=== PATIENT | female | born 1995 | race Caucasian/White ===

== ENCOUNTER 2019-07-24 12:19 | Outpatient (CLI) | payer OTHER, SELFPAY ==
--- NOTE | ~2019-07-24 | XR_ITS ---
EXAMINATION: XR knee LT min 4V DATE: 07/24/2019 12:46 INDICATION: Left knee pain. TECHNIQUE: 4 views of left knee were obtained. COMPARISON: None. FINDINGS: Bone alignment is normal. No fracture. There is mild osteoarthritis of lateral and patellof emoral compartments characterized by tiny marginal osteophytes. No knee joint effusion. IMPRESSION: 1. Mild left knee osteoarthritis. Reviewed, dictated and finalized at location A. NING ANALYST
== END 2019-07-24 12:20 | disposition home or self-care (01) ==
LOC: ANHIMG 12:23
PROVIDERS: PCP Family Medicine; Visit Provider Family Medicine
DX: M17.12 Unilateral primary osteoarthritis, left knee (principal)
CPT/HCPCS: 73564

== ENCOUNTER 2020-01-19 15:30 | Outpatient (RCR) | payer OTHER, SELFPAY ==
--- NOTE | 2019-11-04 13:54 | PTOPEVAL ---
Thank you for referring Vasu Damon to [facility] [place]. Please review, sign, date and return this plan of care STEFANI. Pt referred to therapy due to chronic knee pain that has progressed over the past 6 months. She is limited with advanced movement activities, muscle strength and LE control and position with standing activities. She requires additional skilled PT services 2x/wk x 6-8 wk for land and aquatic therapy to improve limitations. I agree with and certify that the following plan of care is medically necessary. Referring Physician Date Attending Provider: Artemio Nath MD *PT Outpatient Evaluation Start: 11/04/19 12:35 Freq: Status: Active Protocol: Document 11/04/19 12:33 CAP (Rec: 11/04/19 13:35 CAP [id number]) Therapy Assessment Status Assessment Status Assessment Status Evaluation Outpatient Past Medical History Past Medical History Source of Past Medical History Patient Neurological History Hx Neurological Disorders No Significant History Cardiovascular History Hx Cardiac Disorders No Significant History Respiratory History Hx Respiratory Disorders No Significant History Gastrointestinal History Hx Gastrointestinal Disorders No Significant History Genitourinary History Hx Genitourinary Disorders No Significant History Musculoskeletal History Hx Other Musculoskeletal Disorders Yes: sandeep knee chrondromalcia Other History Hx Cancer Yes: non-hodgkins lymphoma Hx Chemotherapy Yes Evaluation Information Problem Diagnosis sandeep knee pain Onset 06/16 Cause unknown Subjective Information She lost 50 pounds and then Query Text:As Reported By Patient/ noticed the increased knee Family pain. Pain is located inferior to medial aspect of sandeep knee cap region. Prolonged standing, squating, running, jumping will increase the pain. Denies increased pain with general walking, unless walking longer distance . Denies swelling She has worn a jayson wrap n the knees when exercises but it did not stay properly. Workout would consist of low impact exercise. She has weights at home, but does not use them. She would like to be able to run again.It has been 2-3 yrs since she went running for exercise. Diagnostic Tests X-Rays For This Problem Yes: OA
--- NOTE | 2019-11-25 14:15 | PCPTNOTE ---
Addendum entered by Diane Maciel, REGRIND MILL OPERATOR 11/25/19 16:29: Patient called and cancelled appointment no reason given, left voicemail. Original Note: Patient did not show up for scheduled appointment this date.
--- NOTE | 2019-12-01 10:04 | PCPTNOTE ---
Patient called & cancelled scheduled appointment this date due to being unable to make it.
--- NOTE | 2019-12-04 08:04 | PCPTNOTE ---
Patient called & cancelled scheduled appointment this date due to unknown reason. Pt has been rescheduled for 1 week.
--- NOTE | 2019-12-12 16:28 | PTOPEVAL ---
Thank you for referring Vasu Damon to [facility]. Please review, sign, date and return this plan of care STEFANI. Pt has received 6 therapy visits to address knee pain. She is progressing slowly towards her therapy goals with improved function, LE control and strength with standing activities and improved pain. She requires additional PT 1x/wk x 3-4 wk. I agree with and certify that the following plan of care is medically necessary. Referring Physician Date Attending Provider: Artemio Nath MD PT re-assessment note *PT Outpatient Evaluation Start: 11/04/19 12:35 Freq: Status: Active Protocol: Document 12/12/19 15:35 CAP (Rec: 12/12/19 16:28 CAP [email or web address]) Therapy Assessment Status Assessment Status Assessment Status Re-evaluation Evaluation Information Problem Diagnosis sandeep knee pain Onset 06/16 Cause unknown Subjective Information She reports continued knee Query Text:As Reported By Patient/ pain with prolonged standing, Family squating, running or jumping. She reports improved knee pain is better with use of the tape. She reports work is a little better. She has not been consistent with performing her HEP for the past 2-3 wks due to moving into a new place. She has not been performing her cardio conditioning recently. Pain Assessment Timing of Pain Assessment Timing of Pain Assessment Re-assessment Pain Scale Pain Scale Used Numeric (1 - 10) Self Report Pain Assessment Left Knee(s) Reported Pain Level 0 Pain Description Sharp,Throbbing Pain Frequency Intermittent Lowest Pain Intensity 0 Greatest Pain Intensity 5 Pain Aggravating Factors Bending,Prolonged Position, Stair Climbing,Walking,Weight Bearing/Standing Right Knee(s) Reported Pain Level 0 Pain Description Sharp,Throbbing Pain Frequency Intermittent Lowest Pain Intensity 0 Greatest Pain Intensity 5 Pain Aggravating Factors Bending,Prolonged Position, Stair Climbing,Walking,Weight Bearing/Standing Pain Score Pain Score 0,0: Self Report Lower Extremity Muscle Strength Testing Hip Strength Bilateral Hip Flexion Strength 5 Normal Hip Extension Strength 4+ Good + Hip Abduction Strength 4- Go
--- NOTE | 2019-12-30 15:50 | PCPTNOTE ---
Patient did not show up for scheduled appointment this date. Pt states she forgot about her appointment today. She has 1 additional visits for final reassessment.
--- NOTE | 2020-01-19 16:16 | PTOPEVAL ---
Thank you for referring Vasu Damon to [facility] [place].? Pt has been seen for 8 therapy visits to address knee pain. She has improved with her pain, LE strength and tolerance with functional mobility and fitness routine. She has achieved her therapy goals. She has reached maximal potential with skilled therapy services at this time. Will DC skilled therapy services. Please review, sign, date and return this plan of care STEFANI. I agree with and certify that the following plan of care is medically necessary. Referring Physician Date Attending Provider: Artemio Nath MD Physical Therapy Discharge Note *PT Outpatient Evaluation Start: 11/04/19 12:35 Freq: Status: Active Protocol: Document 01/19/20 15:36 CAP (Rec: 01/19/20 16:03 CAP [email or web address]) Therapy Assessment Status Assessment Status Assessment Status Discharge Outpatient Past Medical History Past Medical History Source of Past Medical History Patient Neurological History Hx Neurological Disorders No Significant History Cardiovascular History Hx Cardiac Disorders No Significant History Respiratory History Hx Respiratory Disorders No Significant History Gastrointestinal History Hx Gastrointestinal Disorders No Significant History Genitourinary History Hx Genitourinary Disorders No Significant History Musculoskeletal History Hx Other Musculoskeletal Disorders Yes: sandeep knee chrondromalcia Other History Hx Cancer Yes: non-hodgkins lymphoma Hx Chemotherapy Yes Evaluation Information Problem Diagnosis sandeep knee pain Onset 06/16 Cause unknown Subjective Information Reports she has been on Query Text:As Reported By Patient/ vacation a lot since her last Family therapy visit. She denies any knee pain in the past 2 wks. States she did a lot of hiking and walking on vacation without increased pain. She denies any pain with her last 4 work shifts. Pain Assessment Timing of Pain Assessment Timing of Pain Assessment Re-assessment Pain Scale Pain Scale Used Numeric (1 - 10) Self Report Pain Assessment Left Knee(s) Reported Pain Level 0 Right Knee(s) Reported Pain Level 0 Pain Score Pain Score 0,0: Self Report Lower Extremity Muscle Strength Testing Hip Strength Bilateral Hip Extension Strength 5 Normal Hip Abduction Strength 4+ Good + Hip Strength Comments no pain with testing Special Tests-Lower Extremity Hip Special Tests Trendelenburg Sign Negative Left,Negative Right Hip Special Test Comments SLS: 30 sec sandeep with improved
== END 2020-01-20 07:43 | disposition home or self-care (01) ==
LOC: ANHPT 15:30
PROVIDERS: PCP Family Medicine; Visit Provider Orthopaedic Surgery
DX: M22.41 Chondromalacia patellae, right knee (principal); M22.42 Chondromalacia patellae, left knee
CPT/HCPCS: 97110; 97140; 97161; 97530

== ENCOUNTER 2021-02-28 16:03 | Outpatient (CLI) | payer OTHER, SELFPAY ==
[2021-02-28 16:25] LABS: Basophils Percent Auto 0.3 % (0.2-1.2); Eosinophils Absolute Auto 0.1 K/mm3 (0-0.3); Eosinophils Percent Auto 1.9 % (0-4.4); Hematocrit 44.5 % (37.0-47.0); Hemoglobin 15.7 g/dL (12.0-15.0); Immature Granulocyte Absolute 0.04 K/mm3 (0.00-0.031); Immature Granulocyte Percent A 0.6 % (0-0.5); Lymphocytes Absolute Auto 1.55 K/mm3 (0.9-3.2); Lymphocytes Percent Auto 24.8 % (18.3-44.2); Mean Corpuscular HGB Conc 35.3 g/dl (32-36); Mean Corpuscular Hemoglobin 32.3 pg (26-34); Mean Corpuscular Volume 91.6 fl (80-100); Mean Platelet Volume 10.8 fl (7.4-10.4); Monocytes Absolute Auto 0.5 K/mm3 (0.1-0.6); Monocytes Percent Auto 7.7 % (2.6-8.5); Neutrophils Percent Auto 64.7 % (45.5-73.1); Platelet Count Result 206 k/mm3 (150-375); Red Blood Count 4.86 M/mm3 (4.2-5.4); White Blood Count 6.2 K/mm3 (4.5-10.0)
[2021-02-28 16:35] LABS: Alanine Aminotransferase 28 U/L (4-35); Albumin Level 4.7 g/dL (3.5-5.1); Alkaline Phosphatase 66 U/L (38-126); Anion Gap 9 mmol/L (8-16); Aspartate Amino Transferase 23 U/L (14-36); Bilirubin,Total 1.1 mg/dL (0.2-1.3); Blood Urea Nitrogen 12 mg/dL (7-17); Calcium 9.4 mg/dL (8.4-10.2); Carbon Dioxide 24 mmol/L (22-30); Chloride 107 mmol/L (98-107); Estimated Glomerular Filt Rate > 60; Glucose 98 mg/dL (65-110); Potassium 4.1 mmol/L (3.4-5.0); Sodium 140 mmol/L (137-145)
--- NOTE | 2021-03-03 12:08 | WPDHOLTEREM ---
Holter/Event Monitor Holter/Event Monitor Date of procedure: 02/28/21 Holter/Event Procedure: 48 Hr Holter Monitor Indications: Palpitations Conclusion: 1. 48 hour holter monitor on 02/28/21. 2. Underlying rhythm is sinus rhythm. Hr range 52-169 bpm; average HR 85 bpm. 3. No premature supraventricular complexes. No supraventricular tachycardia. 4. There are 64 premature ventricular complexes. No ventricular tachycardia. 5. No sinoatrial or atrioventricular blocks. No significant pauses greater than 2 seconds. 6. No symptoms available for correlation.
== END 2021-02-28 16:04 | disposition home or self-care (01) ==
PROVIDERS: PCP Family Medicine; Visit Provider Physician Assistant
DX: R00.2 Palpitations (principal); R53.83 Other fatigue
CPT/HCPCS: 36415; 80053; 84443; 85025; 93225; 93226

== ENCOUNTER 2021-09-07 09:37 | Outpatient (CLI) | payer OTHER, SELFPAY ==
--- NOTE | ~2021-09-07 | XR_ITS ---
EXAMINATION: XR chest 2V EXAM DATE: 09/07/2021 09:52 INDICATION: R05.9 - Cough, unspecified . TECHNIQUE: Frontal and lateral projections of the chest obtained and reviewed. Comparison is made to prior examination from 06/19/2018. FINDINGS: The lungs are clear. There are no pleural effusions. The cardiomediastinal silhouette is within normal limits. There is no pneumothorax suspected. The bones and soft tissues are unremarkab le. IMPRESSION: No acute cardiopulmonary findings. Reviewed, dictated and finalized at location B.
== END 2021-09-07 09:38 | disposition home or self-care (01) ==
PROVIDERS: PCP Family Medicine; Visit Provider Nurse Practitioner Gerontology
DX: R05.9 Cough, unspecified (principal)
CPT/HCPCS: 71046

== ENCOUNTER 2021-11-03 10:14 | Outpatient (CLI) | payer OTHER, SELFPAY ==
--- NOTE | ~2021-11-03 | CT_ITS ---
EXAMINATION: CT hand LT wo con DATE: 11/03/2021 10:27 INDICATION: Fracture of left metacarpal. TECHNIQUE: Computed tomography (CT) of the left hand was performed without intravenous contrast. Auto mated exposure control and iterative reconstruction technique were employed. The dose-length product was 100.95 mGy-cm. COMPARISON: Left hand radiographs 11/02/2021 FINDINGS: There is a comminuted fracture of head and neck of fifth metacarpal with incongruence of th e articular surface with up to a 2 mm step-off. Joint spaces are normal. IMPRESSION: 1. Comminuted fracture of head and neck of fifth metacarpal with incongruence of the distal articular surface. Reviewed, dictated and finalized at location A. IMPRESSION: 1. Comminuted fracture of head and neck of fifth metacarpal with incongruence o f the distal articular surface.
== END 2021-11-03 10:15 ==
LOC: MICIMG 10:15
PROVIDERS: PCP Family Medicine; Visit Provider Orthopaedic Surgery
DX: S62.339D Displaced fracture of neck of unspecified metacarpal bone, subsequent encounter for fracture with routine healing (principal); X58.XXXD Exposure to other specified factors, subsequent encounter
CPT/HCPCS: 73200

== ENCOUNTER 2022-03-01 15:15 | Outpatient (CLI) | payer OTHER, SELFPAY ==
--- NOTE | ~2022-03-01 | XR_ITS ---
EXAMINATION: XR chest 2V 03/01/2022 15:37 INDICATION: Chest pain PROCEDURE: 2 view chest COMPARISON: Comparison to multiple prior studies sequentially, with oldest reviewed study dated 04/27. FINDINGS: The lungs are clear. The cardiomediastinal silhouette is within normal limits. There are no pleural effusions. There is no pneumothorax suspected. IMPRESSION: 1: NO ACUTE CARDIOPULMONARY DISEASE. Reviewed, dictated and finalized at location B.
== END 2022-03-01 15:16 | disposition home or self-care (01) ==
PROVIDERS: PCP Family Medicine; Visit Provider Physician Assistant
DX: C85.10 Unspecified B-cell lymphoma, unspecified site (principal); R07.89 Other chest pain
CPT/HCPCS: 71046

== ENCOUNTER 2022-03-10 08:11 | Outpatient (CLI) | payer OTHER, SELFPAY ==
--- NOTE | ~2022-03-10 | CT_ITS ---
EXAMINATION: CT diagnostic chest w con DATE: 03/10/2022 08:39 INDICATION: Mediastinal large B-cell lymphoma TECHNIQUE: Transaxial computed tomographic images of the chest were obtained after the administration of 75 cc of Omnipaque 350 intravenous contrast. The dose-length product (DLP) was 877.00 mGy-cm. Ite rative reconstruction was used. COMPARISON: 05/13/2015 FINDINGS: There is mild dependent atelectasis. The lungs are free of focal airspace opacities. No ple ural effusion or pneumothorax. The heart size is normal. Preaortic lymph nodes measure up to 11 mm, p reviously 18 mm. Thoracic lymph nodes are otherwise normal in size. The visualized osseous structures are unremarkable. IMPRESSION: 1. Mild periaortic lymphadenopathy, improved since the comparison examination. Reviewed, dictated and finalized at location F.
== END 2022-03-10 08:12 | disposition home or self-care (01) ==
PROVIDERS: PCP Family Medicine; Visit Provider Internal Medicine Hematology & Oncology
DX: C85.29 Mediastinal (thymic) large B-cell lymphoma, extranodal and solid organ sites (principal)
CPT/HCPCS: 71260; Q9967

== ENCOUNTER 2022-07-31 15:52 | Outpatient (CLI) | payer OTHER, SELFPAY ==
--- NOTE | ~2022-07-31 | XR_ITS ---
EXAMINATION: XR chest 2V Exam Date/Time: 07/31/2022 15:55 GEOSPATIAL INFORMATION TECHNOLOGIST HISTORY: SOB AND COUGH X 3 WEEKS Comparison: 03/01/2022. RESULT: Lines, tubes, and devices: None. Lungs and pleura: Clear. Cardiomediastinal silhouette: Stable. Other: No acute osseous or upper abdominal finding. IMPRESSION: No acute cardiopulmonary process. Reviewed, dictated and finalized at location K. PATIAL INFORMATION TECHNOLOGIST
== END 2022-07-31 15:53 | disposition home or self-care (01) ==
LOC: ANHIMG 15:56
PROVIDERS: PCP Family Medicine; Visit Provider Physician Assistant
DX: R06.2 Wheezing (principal)
CPT/HCPCS: 71046

== ENCOUNTER 2023-03-13 13:21 | Outpatient (CLI) | payer OTHER, SELFPAY ==
--- NOTE | 2023-03-13 14:00 | NEURO_ITS ---
Impression: # Complains of numbness of hands. # Sensory more than motor Carpal Tunnel Syndrome. # No ulnar neuropathy. # Normal needle/EMG. Nerve Conduction Studies Anti Sensory Summary Table Stim Site NR Peak (ms) P-T Amp (?V) Site1 Site2 Delta-P (ms) Dist (cm) Frantz (m/s) Left Median Anti Sensory (2-3nd Digit) Wrist 5.0 24.3 Wrist 2-3nd Digit 5.0 14.0 28 Wrist 5.3 35.8 Wrist 2-3nd Digit 5.0 14.0 28 Right Median Anti Sensory (2-3nd Digit) Wrist 4.7 14.0 Wrist 2-3nd Digit 4.7 14.0 30 Wrist 4.7 21.1 Wrist 2-3nd Digit 4.7 14.0 30 Left Radial Anti Sensory (Base 1st Digit) Wrist 2.0 26.3 Wrist Base 1st Digit 2.0 0.0 Right Radial Anti Sensory (Base 1st Digit) Wrist 1.8 19.8 Wrist Base 1st Digit 1.8 0.0 Left Ulnar Anti Sensory (5th Digit) Wrist 2.5 83.7 Wrist 5th Digit 2.5 14.0 56 Right Ulnar Anti Sensory (5th Digit) Wrist 2.5 19.7 Wrist 5th Digit 2.5 14.0 56 Motor Summary Table Stim Site NR Onset (ms) O-P Amp (mV) Site1 Site2 Delta-0 (ms) Dist (cm) Frantz (m/s) Left Median Motor (Abd Poll Brev) Wrist 3.5 1.8 Elbow Wrist 4.3 26.0 60 Elbow 7.8 1.6 Right Median Motor (Abd Poll Brev) Wrist 3.5 3.4 Elbow Wrist 4.1 26.0 63 Elbow 7.6 1.2 Left Ulnar Motor (Abd Dig Minimi) Wrist 2.3 6.1 A Elbow Wrist 4.7 29.0 62 A Elbow 7.0 4.9 Right Ulnar Motor (Abd Dig Minimi) Wrist 2.1 3.5 A Elbow Wrist 4.9 29.0 59 A Elbow 7.0 4.4 F Wave Studies NR F-Lat (ms) L-R F-Lat (ms) Left Median (Mrkrs) (Abd Poll Brev) 27.38 1.36 Right Median (Mrkrs) (Abd Poll Brev) 26.02 1.36 Left Ulnar (Mrkrs) (Abd Dig Min) 26.13 0.53 Right Ulnar (Mrkrs) (Abd Dig Min) 26.65 0.53 EMG Side Muscle Nerve Root Ins Act Fibs Amp Dur Recrt Comment Right 1stDorInt Ulnar C8-T1 Nml Nml Nml Nml Nml Right Ext Indicis Radial (Post Int) C7-8 Nml Nml Nml Nml Nml Right Ext Digitorum Radial (Post Int) C7-8 Nml Nml Nml Nml Nml Right BrachioRad Radial C5-6 Nml Nml Nml Nml Nml Right PronatorTeres Median C6-7 Nml Nml Nml Nml Nml Right Abd Poll Brev Median C8-T1 Nml Nml Nml Nml Nml Left 1stDorInt Ulnar C8-T1 Nml Nml Nml Nml Nml Left Ext Indicis Radial (Post Int) C7-8 Nml Nml Nml Nml Nml Left Ext Digitorum Radial (Post Int) C7-8 Nml Nml Nml Nml Nml Left BrachioRad Radial C5-6 Nml Nml Nml Nml Nml Left PronatorTeres Median C6-7 Nml Nml Nml Nml Nml Left Abd Poll Brev Median C8-T1 Nml Nml Nml Nml Nml MTDD
[2023-03-13 14:42] LABS: Basophils Percent Auto 0.2 % (0.2-1.2); Eosinophils Percent Auto 0.2 % (0-4.4); Hematocrit 43.8 % (37.0-47.0); Hemoglobin 14.9 g/dL (12.0-15.0); Immature Granulocyte Absolute 0.04 K/mm3 (0.00-0.031); Immature Granulocyte Percent A 0.7 % (0-0.5); Lymphocytes Absolute Auto 2.03 K/mm3 (0.9-3.2); Lymphocytes Percent Auto 33.8 % (18.3-44.2); Mean Corpuscular Hemoglobin 30.7 pg (26-34); Mean Corpuscular Volume 90.1 fl (80-100); Mean Platelet Volume 10.8 fl (7.4-10.4); Monocytes Absolute Auto 0.5 K/mm3 (0.1-0.6); Monocytes Percent Auto 7.7 % (2.6-8.5); Neutrophils Absolute Auto 3.5 K/mm3 (1.3-6.7); Neutrophils Percent Auto 57.4 % (45.5-73.1); Platelet Count Result 212 k/mm3 (150-375); Red Blood Count 4.86 M/mm3 (4.2-5.4); Red Cell Distribution Width 12.8 % (11.5-14.5)
[2023-03-13 14:54] LABS: Alanine Aminotransferase 39 U/L (6-35); Albumin Level 4.1 g/dL (3.5-5.1); Alkaline Phosphatase 63 U/L (38-126); Anion Gap 5 mmol/L (8-16); Aspartate Amino Transferase 29 U/L (14-36); Bilirubin,Total 0.8 mg/dL (0.2-1.3); Blood Urea Nitrogen 13 mg/dL (7-17); Calcium 9.1 mg/dL (8.4-10.2); Carbon Dioxide 28 mmol/L (22-30); Chloride 103 mmol/L (98-107); Estimated Glomerular Filt Rate > 60; Glucose 92 mg/dL (65-110); Magnesium 1.8 mg/dL (1.6-2.3); Sodium 136 mmol/L (137-145)
== END 2023-03-13 13:22 | disposition home or self-care (01) ==
PROVIDERS: PCP Family Medicine; Visit Provider Family Medicine
DX: F41.1 Generalized anxiety disorder (principal); K21.9 Gastro-esophageal reflux disease without esophagitis; F90.9 Attention-deficit hyperactivity disorder, unspecified type
CPT/HCPCS: 36415; 80053; 83735; 84443; 85025; 95886; 95911

== ENCOUNTER 2023-06-14 11:29 | Emergency (ER) | payer OTHER, SELFPAY ==
[2023-06-14 11:52] VITALS: BP 112/96; PULSE 148; RESP 16; TEMP 37.3; O2SAT 100
--- NOTE | 2023-06-14 12:13 | ED.URI ---
HPI - URI/Sore Throat General Chief Complaint: Upper Respiratory Infection Stated Complaint: SOB/FEVER/CHILLS/BODY ACHES Time Seen by Provider: 06/14/23 12:06 Source: patient and RN notes reviewed Mode of arrival: ambulatory Limitations: no limitations History of Present Illness HPI Narrative: Patient presents today complaining 3 day history chest wall pain, cough, rhinorrhea, congestion, sore throat, fever up to 101.7. She has been using Del some, Tylenol, ibuprofen, Claritin, Flonase, and an albuterol inhaler with some relief. Patient is a nurse at the hospital. Related Data Home Medications Medication Instructions Recorded Confirmed prenat.vits,everette,[id number] 1 tablet PO DAILY 06/14/23 06/14/23 Allergies Allergy/AdvReac Type Severity Reaction Status Date / Time buspirone AdvReac Intermediate Dizziness Verified 06/14/23 11:45 Review of Systems Review of Systems: CONSTITUTIONAL: Denies body aches, chills, or sweats.+ fever EYES: Denies visual changes, redness, or discharge. ENT: Denies otalgia.+ rhinorrhea, congestion, sore throat CARDIOVASCULAR: Denies chest pain, palpitations, or edema. RESPIRATORY: Denies dyspnea.+ cough, chest wall pain GASTROINTESTINAL: Denies abdominal pain, nausea, vomiting, or diarrhea. GENITOURINARY: Denies dysuria or hematuria. SKIN: Denies rash, itching, or wounds. MUSCULOSKELETAL: Denies back pain, joint pain, or myalgia. NEUROLOGIC: Denies headache, numbness, tingling, or weakness. PSYCH: Denies depression or anxiety. 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 Family History Family History Mother Anemia Melanoma Father Asthma GERD (gastroesophageal reflux disease) Anxiety Malignant neoplasm of prostate Grandparent Family history of malignant neoplasm of breast maternal grandmother, paternal grandmother Diabetes mellitus Malignant neoplasm of prostate paternal and maternal grandfather Melanoma Sibling Scoliosis sister Other Breast cancer Depression Social History Social History Social History: Partner Smoking status: Never smoker Second hand tobacco smoke exposure: No Alcohol intake: former Alcohol use details: Occasionally Substance use: current Substance use type: marijuana Other substance usage details: 2 x week Lack of Transportation: No Lack of Food: Never True Current Housing: I Have Housing Concerned About Future Housing: No Difficulty Paying Gas/Electric Bills: No Difficulty Paying for Meds: No Currently Unemployed: No Education: Bachelor's Degree Difficulty w/ Childcare or Family Care: No Living arrangements: with family Additional living arrangements comments: Occupation/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 at [employer]
== END 2023-06-14 12:25 | disposition home or self-care (01) ==
PROVIDERS: Emergency Provider Nurse Practitioner; PCP Family Medicine
DX: J10.1 Influenza due to other identified influenza virus with other respiratory manifestations (principal); Z20.822 Contact with and (suspected) exposure to COVID-19; F90.9 Attention-deficit hyperactivity disorder, unspecified type; F41.9 Anxiety disorder, unspecified; F32.A Depression, unspecified; E66.01 Morbid (severe) obesity due to excess calories; Z68.43 Body mass index [BMI] 50.0-59.9, adult; Z85.72 Personal history of non-Hodgkin lymphomas
CPT/HCPCS: 87426; 87804; 99213; G0463

== ENCOUNTER 2024-01-15 17:38 | Emergency (ER) | payer OTHER, SELFPAY ==
--- NOTE | ~2024-01-15 | XR_ITS ---
EXAMINATION: XR chest 2V DATE: 01/15/2024 18:01 INDICATION: Cough and body aches TECHNIQUE: PA and lateral views of the chest were obtained. COMPARISON: Chest radiograph dated 07/31/2022 FINDINGS: The lungs remain clear with no focal airspace opacities, pulmonary edema, pleural effusion or pneumot horax. The cardiomediastinal silhouette is normal. Visualized bones and soft tissues are unremarkable . IMPRESSION: 1. No acute cardiopulmonary disease. Reviewed, dictated and finalized at location A.
--- NOTE | 2024-01-15 17:41 | ED.URI ---
HPI - URI/Sore Throat General Chief Complaint: Upper Respiratory Infection Stated Complaint: CONGESTION/COUGH/SINUS PRESSURE Source: patient and RN notes reviewed Mode of arrival: ambulatory Limitations: no limitations History of Present Illness HPI Narrative: Patient is a 28-year-old female who presents to the [facility] with multiple complaints. Patient has complaints of generalized body aches, congestion, sore throat, headache. Patient also reports a frequent productive cough with yellow sputum. She denies any fevers or chills. States that she was sent home from work this morning around 8:00 a.m. due to being tachycardic. She states that she does take Adderall and that this morning before work. She also denote Peter old treatment last night. She is noted to be tachycardic at this time without pulse rate of 137. She is afebrile. Her respirations are unlabored. She does not appear in any acute distress. Related Data Home Medications Medication Instructions Recorded Confirmed dextroamphetamine-amphetamine 5 mg 5 mg PO DIRECTED 01/15/24 01/15/24 tablet Allergies Allergy/AdvReac Type Severity Reaction Status Date / Time buspirone AdvReac Intermediate Dizziness Verified 01/15/24 17:43 Review of Systems Review of Systems: CONSTITUTIONAL: Denies fever, chills, or sweats. EYES: Denies visual changes, redness, or discharge. ENT: Denies otalgia. Reports congestion and sore throat. CARDIOVASCULAR: Denies chest pain, palpitations, or edema. RESPIRATORY: Denies dyspnea. Reports cough. GASTROINTESTINAL: Denies abdominal pain, nausea, vomiting, or diarrhea. GENITOURINARY: Denies dysuria or hematuria. SKIN: Denies rash or itching. MUSCULOSKELETAL: Denies back pain and joint pain, but reports myalgia. NEUROLOGIC: Denies numbness or weakness, but reports headache. Pertinent positives per HPI. 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 Family History Family History Mother Anemia Melanoma Father Asthma GERD (gastroesophageal reflux disease) Anxiety Malignant neoplasm of prostate Grandparent Family history of malignant neoplasm of breast maternal grandmother, paternal grandmother Diabetes mellitus Malignant neoplasm of prostate paternal and maternal grandfather Melanoma Sibling Scoliosis sister Other Breast cancer Depression Social History Social History Social History: Smoking status: Never smoker Second hand tobacco smoke exposure: No Alcohol intake: former Alcohol use details: Occasionally Substance use: current Substance use type: marijuana Other substance usage details: 2 x week Do You Feel Safe in your Home?: Yes Lack of Transportation: No Lack of Food: Never True Current Housing: I Have Housing Concerned About Future Housing: No
[2024-01-15 17:50] VITALS: BP 130/89; PULSE 137; RESP 16; TEMP 36.9; O2SAT 100
[2024-01-15 19:59] LABS: EDSTREPNEGPOS1 Negative
== END 2024-01-15 18:25 | disposition home or self-care (01) ==
PROVIDERS: Emergency Provider Nurse Practitioner; PCP Family Medicine
DX: U07.1 COVID-19 (principal); F12.90 Cannabis use, unspecified, uncomplicated; F90.9 Attention-deficit hyperactivity disorder, unspecified type; E66.01 Morbid (severe) obesity due to excess calories; Z68.43 Body mass index [BMI] 50.0-59.9, adult; Z85.72 Personal history of non-Hodgkin lymphomas; Z92.21 Personal history of antineoplastic chemotherapy
CPT/HCPCS: 71046; 87081; 87426; 87880; 99213; G0463

== ENCOUNTER 2024-04-28 23:14 | Emergency (ER) | payer OTHER, SELFPAY ==
[2024-04-28 23:21] VITALS: BP 145/79; PULSE 86; RESP 15; TEMP 36.7; O2SAT 100
[2024-04-29 02:25] VITALS: BP 119/67; PULSE 78; RESP 16; TEMP 36.6; O2SAT 100
--- NOTE | 2024-04-29 02:55 | ED_ITS ---
HPI - General Adult General Chief complaint: Skin/Abscess/Foreign Body Stated complaint: i think I might have cellulitis Time Seen by Provider: 04/29/24 02:48 History of Present Illness HPI narrative: patient is a 28-year-old female presents emergency department with chief complaint of redness to abdominal wall patient reports that several days ago she rubbed her abdomen against a door handle and had a small abrasion developed the patient reports areas developed an eschar and reports that she had redness this developed around the patient started pending a telephonic today has had no drainage of purulent material denies fever Related Data Allergies Allergy/AdvReac Type Severity Reaction Status Date / Time buspirone AdvReac Intermediate Dizziness Verified 04/28/24 23:23 Review of Systems Review of Systems: A 10 system review of systems was completed on the patient and is negative except for what is stated in the HPI. Nursing and ancillary documentation was reviewed. 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 Family History Family History Mother Anemia Melanoma Father Asthma GERD (gastroesophageal reflux disease) Anxiety Malignant neoplasm of prostate Grandparent Family history of malignant neoplasm of breast maternal grandmother, paternal grandmother Diabetes mellitus Malignant neoplasm of prostate paternal and maternal grandfather Melanoma Sibling Scoliosis sister Other Breast cancer Depression Social History Social History Social History: Smoking status: Never smoker Second hand tobacco smoke exposure: No Alcohol intake: former Alcohol use details: Occasionally Substance use: current Substance use type: marijuana Other substance usage details: 2 x week Do You Feel Safe in your Home?: Yes Lack of Transportation: No Lack of Food: Never True Current Housing: I Have Housing Concerned About Future Housing: No Difficulty Paying Gas/Electric Bills: No Difficulty Paying for Meds: No Currently Unemployed: No Education: Bachelor's Degree Difficulty w/ Childcare or Family Care: No Living arrangements: with family Occupation/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 at [employer] Gender identity (if verbalized by the patient): Female Sexual Orientation (if Verbalized by the Patient): Lesbian, [place], or Homosexual Exam Narrative: GENERAL: Well-appearing, well-nourished, and in no acute distress. HEAD: Normocephalic, atraumatic. EYES: PERRLA and EOMI. ENT: Nares clear, no rhinorrhea or epistaxis. Mucous membranes moist. NECK: Supple. CHEST: Clear to auscultation. No respiratory distress. HEART: Regular rate and rhythm. No murmur heard. Normal peripheral pulses. ABDOMEN: Soft, nontender, nondistended, normal active bowel sounds. EXTREMITIES: Normal range of motion. No edema. SKIN: Warm, dry, quarter-sized area of ulceration present to the abdominal wall with surrounding erythema. NEURO: No focal deficits. Alert and oriented x3. PSYCH: Normal mood and affect. Course Vital Signs Vital signs: Vital Signs Temperature 36.7 C 04/28/24 23:21 Pulse Rate 86 04/28/24 23:21 Respiratory Rate 15 04/28/24 23:21 Blood Pressure 145/79 H 04/28/24 23:21 Pulse Oximetry 100 04/28/24 23:21 Oxygen Delivery Room Air 04/28/24 23:21 Temperature 36.6 C 04/29/24 02:25 Pulse Rate 78 04/29/24 02:25 Respiratory Rate 16 04/29/24 02:25 Blood Pressure 119/67 04/29/24 02:25 Pulse Oximetry 100 04/29/24 02:25 Oxygen Delivery Room Air 04/28/24 23:21 Medical Decision Making MDM Narrative Medical decision making narrative: patient is nontoxic afebrile and showing no signs of sepsis. There is no appreciable abscess on exam patient be started on doxycycline and will be instructed localized wound care Vital Signs Vital Signs: Vital Signs Temperature 36.7 C 04/28/24 23:21 Pulse Rate 86 04/28/24 23:21 Respiratory Rate 15 04/28/24 23:21 Blood Pressure 145/79 H 04/28/24 23:21 Pulse Oximetry 100 04/28/24 23:21 Oxygen Delivery Room Air 04/28/24 23:21 Temperature 36.6 C 04/29/24 02:25 Pulse Rate 78 04/29/24 02:25 Respiratory Rate 16 04/29/24 02:25 Blood Pressure 119/67 04/29/24 02:25 Pulse Oximetry 100 04/29/24 02:25 Oxygen Delivery Room Air 04/28/24 23:21 Discharge Plan Discharge Clinical Impression: Abdominal wall cellulitis Patient Disposition: Home, Self-Care Condition: Stable Instructions: Antibiotic Form, Cellulitis (ED), Acute Wounds (ED) Prescriptions: New doxycycline hyclate 100 mg tablet 100 mg PO BID Qty: 14 0RF No Action omeprazole 40 mg capsule,delayed release(DR/EC) 40 mg PO DAILY Qty: 90 1RF Mounjaro 2.5 mg/0.5 mL pen injector 2.5 mg subcut WEEKLY Qty: 2 0RF Rx Instructions: for 4 weeks dextroamphetamine-amphetamine [Adderall] 5 mg tablet 5 mg PO BID Qty: 60 0RF Follow-up/Referrals: Deb Jones MD [Primary Care Provider] - Time of Disposition: 02:58
[2024-04-29] MEDS: DOXYCYCLINE HYCLATE 100 MG TABLET PO (02:59)
== END 2024-04-29 03:09 | disposition home or self-care (01) ==
LOC: ANHED 04-29 03:06
PROVIDERS: Emergency Provider Emergency Medicine; PCP Family Medicine
DX: L03.311 Cellulitis of abdominal wall (principal); E66.01 Morbid (severe) obesity due to excess calories; F90.9 Attention-deficit hyperactivity disorder, unspecified type; F32.A Depression, unspecified; Z85.72 Personal history of non-Hodgkin lymphomas; Z92.21 Personal history of antineoplastic chemotherapy
CPT/HCPCS: 99283; A9270

== ENCOUNTER 2024-09-15 11:38 | Emergency (ER) | payer OTHER, SELFPAY ==
--- NOTE | ~2024-09-15 | CT_ITS ---
EXAMINATION: CT abdomen pelvis w con DATE: 09/15/2024 13:56 INDICATION: Abdominal distention and pain TECHNIQUE: Computed tomography (CT) of the abdomen and pelvis was performed with 100 mL Omnipaque-350 intravenous contrast. Automated exposure control and iterative reconstruction technique were employe d. The dose-length product was 1508.47 mGy-cm. COMPARISON: None FINDINGS: Lung bases are clear. Heart size is normal. No pericardial or pleural effusion. Liver, gallbladder, s pleen, pancreas, bilateral adrenal glands and kidneys are normal. Bladder unremarkable. Including the appendix are normal. No free intraperitoneal gas or fluid. No pathologically enlarged abdominal or p elvic lymphadenopathy. No free intraperitoneal gas or fluid. No pathologically enlarged abdominal or pelvic lymphadenopathy. Small fat-containing umbilical hernia. Mild thoracic spondylosis. IMPRESSION: 1. No acute intra-abdominal/pelvic process. 2. Small fat-containing umbilical hernia. Reviewed, dictated and finalized at location A.
[2024-09-15 11:48] VITALS: BP 137/85; PULSE 68; RESP 18; TEMP 36.8; O2SAT 100
[2024-09-15 12:34] LABS: BEDSIDEPREGUCG Negative (Negative)
[2024-09-15 12:36] LABS: Add Urine Microscopic? NO; Appearance Urine Clear (Clear); Bilirubin Urine Negative (Negative); Blood Urine Negative (Negative); Color Urine Yellow (Yellow); Glucose Urine UA Negative (Negative); Ketones Urine Negative (Negative); Leukocyte Esterase Ur Negative LEU/UL (Negative); Nitrate Urine Negative (Negative); Protein Urine Negative (Negative); Specific Grav Ur 1.011 (1.001-1.035); Urobilinogen Urine 0.2 mg/dL (<2.0)
[2024-09-15 12:38] LABS: Basophils Percent Auto 0.5 % (0.2-1.2); Eosinophils Absolute Auto 0.1 K/mm3 (0-0.3); Eosinophils Percent Auto 2.2 % (0-4.4); Hematocrit 41.1 % (37.0-47.0); Immature Granulocyte Absolute 0.03 K/mm3 (0.00-0.031); Immature Granulocyte Percent A 0.5 % (0-0.5); Lymphocytes Absolute Auto 2.28 K/mm3 (0.9-3.2); Lymphocytes Percent Auto 37.8 % (18.3-44.2); Mean Corpuscular HGB Conc 34.1 g/dl (32-36); Mean Corpuscular Hemoglobin 29.9 pg (26-34); Mean Corpuscular Volume 87.8 fl (80-100); Monocytes Absolute Auto 0.4 K/mm3 (0.1-0.6); Monocytes Percent Auto 6.1 % (2.6-8.5); Neutrophils Absolute Auto 3.2 K/mm3 (1.3-6.7); Neutrophils Percent Auto 52.9 % (45.5-73.1); Platelet Count Result 245 k/mm3 (150-375); Red Blood Count 4.68 M/mm3 (4.2-5.4); Red Cell Distribution Width 12.9 % (11.5-14.5)
[2024-09-15 12:48] LABS: Alanine Aminotransferase 37 U/L (6-35); Albumin Level 4.1 g/dL (3.5-5.1); Alkaline Phosphatase 65 U/L (38-126); Anion Gap 9 mmol/L (4-12); Aspartate Amino Transferase 27 U/L (14-36); Bilirubin,Total 0.9 mg/dL (0.2-1.3); Blood Urea Nitrogen 16 mg/dL (7-17); Calcium 8.8 mg/dL (8.4-10.2); Carbon Dioxide 26 mmol/L (22-30); Chloride 104 mmol/L (98-107); Estimated CRCL calculation 127 ml/min; Estimated Glomerular Filt Rate > 60; Glucose 86 mg/dL (65-110); Lipase 52 U/L (23-300); Potassium 3.7 mmol/L (3.4-5.0); Sodium 139 mmol/L (137-145)
--- OUTSIDE RECORDS SUMMARY | 2024-09-15 13:23 | XMS_ITS | Referral Summary ---
Author Organization [facility] al Address [address] [place] [address] Care Team Providers Care Gis Analyst Developer Name Role Phone Deb Jones MD Primary Care Provider Allergies Active Allergy Reactions Criticality Noted Date Comments Buspirone Dizziness Low 09/15/2023 Medications dextroamphetamin e-amphetamine (ADDERALL) 5 mg tablet Take 1 tablet (5 mg total) by mouth 2 (two) times a day Active naproxen (NAPROSYN) 500 mg tablet Take 1 tablet (500 mg total) by mouth 05/24/2024 Active omeprazole (PriLOSEC) 40 mg capsule 05/27/2024 Active Active Problems Problem Noted Date Diagnosed Date Hearing loss 12/21/2016 Malignant lymphoma, large cell, diffuse 03/18/20 15 Immunizations Immunization Administration Dates Next Due Influenza, Quadrivalent, Marimar l Culture-based MDCK, Preservative Free, Antibiotic Free, Intramuscular 03/02/2023,04/07/2022 Influenza, Quadrivalent, Spl it, Preservative Free, Intramuscular 03/08/2017 Influenza, Trivalent, Preservative Free, Intramu scular 03/25/2015 Tdap 01/11/2018 Social History Tobacco Use Types Packs/Day Years Used Date Smoking Tobacco: Never Smokeless Tobacco: Never Tobacco Cessation:Counseling Given: No Comments Unknown Sex and Gender Information Value Date Recorded Sex Assigned at Not on file Legal Sex Female 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 Gender Identity Female 09/04/2023 8:48 PM CDT Sexual Orientation Not on file Last Filed Vital Signs Vital Sign Reading Time Taken Comments Blood Pressure 115/76 01/08/2020 1:53 PM CDT Pulse 71 01/08/2020 1:53 PM CDT Temperature 36.6 C (97.9 F) 01/08/2020 1:53 PM CDT Respiratory Rate 20 01/08/2020 1:52 PM CDT Oxygen Saturation 98% 01/08/2020 1:53 PM CDT Inhaled Oxygen Concentration - - Weight 128.8 kg (284 lb) 01/08/2020 1:52 PM CDT Height 166 cm (5' 5.35 ) 02/19/2019 2:56 PM CDT Body Mass Index 46.75 02/19/2019 2:56 PM CDT Plan of Treatment Not on file Procedures Procedure Name Priority Date/Time Associated Diagnosis Comments SERUM HEPATITIS C AB Routine 08/06/2014 8:10 AM CDT from Last 3 Months or Most Recently Relevant to Health Maintenance Results * Serum Hepatitis C ab (08/06/2014 8:10 AM CDT) HCV ab Negative NEG HISTORICAL RESULTS Serum 08/06/2014 8:10 AM CDT Narrative HISTORICAL RESULTS - 08/07/2014 5:26 AM CDT {Testing performed by: [place] [address]} Interpretive Data If confirmation is required, call Laboratory Customer Service to request sample to be sent to [facility] for Hepatitis C Virus (HCV) RNA Detection and Quantitation by Real-Time Reverse Director External Communications-PCR (RT-PCR). Current interpretive data was last revised on 2011 us Dolly Villela MD LAB BLOOD ORDERABLES Final Result HISTORICAL RESULTS from Last 3 Months or Most Recently Relevant to Health Maintenance Insurance [employer] PPO [facility] HMO Care Teams Gis Analyst Developer Relationship Specialty Start Date End Date Deb Jones MD [address] [facility] [address] [place] [id number] PCP - General Family Medicine 06/06/18
--- OUTSIDE RECORDS SUMMARY | 2024-09-15 13:23 | XMS_ITS | Clinical Summary ---
Author Organization [facility] al Address [address] [place] [address] Care Team Providers Care Soccer Player Name Role Phone Deb Jones MD Primary [...] Preservative Free, Intramu scular 03/25/2015 Tdap 01/11/2018 Surgical History Surgery Date Site/Laterality Comments PORT REMOVAL 10/21/2015 N/A PORT PLACEMENT CHEST >5 YEARS 08/11/2014 N/A IR FINE NEEDLE ASPIRATION W IMAGE GUIDANCE 07/27/2014 N/A BIOPSY LYMPH NODE SUPERFICIAL 07/27/2014 N/A SECTION 03/27/2018 Medical History Medical History Date Comments Chronic sinusitis Recurrent sinu s infections - (Added by TW Conv) Depression Anxiety History of lymphoma Obesity Pulmonary embolism (HCC) ADHD (attention deficit hype ractivity disorder) Cancer (HCC) Family History Medical History Relation Name Comments Skin cancer Maternal Grandfather Family history of skin cancer - Relation: Grandfather (Added by TW Conv) Relation Name Status Comments Maternal Grandfather Social History Tobacco Use Types Packs/Day Years Used Date Smoking Tobacco: Never Smokeless Tobacco: Never Tobacco Cessation:Counseling Given: No Comments Unknown Sex and Gender Information Value Date Recorded Sex Assigned at Not on file 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 Gender Identity Female 09/04/2023 8:48 PM CDT Sexual Orientation Not on file Obstetrics History Para Term AB IAB SAB Ectopic Multiple Livin g Live Births 1 1 1 1 1 Date Outcome GA Total Labor Labor/2nd/3rd Weight Sex Type Anes PTL Valerie A1 A5 Name Clin 018 Term 40w 6d 3.374 kg (7 lb 7 oz) F CS-LT ranv N Living Complications:Pre eclampsia Last Filed Vital Signs Vital Sign Reading [...] 02/19/2019 2:56 PM CDT Plan of Treatment Health Maintenance Due Date Last Done Comments Cervical Cancer Screening 1994 Depression Screening 1994 Varicella Vaccines (1 of 2 - + 2-dose series) 10/11/2007 Hepatitis B Screening 2012 Regular Well Visit/Exam 18-64 2012 Pneumococcal vaccine <65 (1 of 2 - PCV) 2013 Zoster Vaccine (1 of 2) 2013 Covid-19 Vaccine ( season) 2024 04/07/2022, 06/08/2020, 05/14/2020 Influenza Vaccine (Season Ended) 2025 03/02/2023, 04/07/2022, 03/08/2017, Additional history exists DTaP/Tdap/Td Vaccine (2 - Td or Tdap) 01/12/2028 01/11/2018 Hepatitis C Screening Completed 08/06/2014 HPV Vaccines Aged Out No longer eligi ble based on patient's age to complete this topic Procedures Procedure Name Priority Date/Time Associated Diagnosis Comments SERUM HEPATITIS C AB Routine 08/06/2014 8:10 AM CDT from Last 3 Months or Most Recently Relevant to Health Maintenance Results * Serum Hepatitis C ab (08/06/2014 8:10 AM CDT) HCV ab Negative NEG HISTORICAL RESULTS Serum 08/06/2014 8:10 AM CDT Narrative HISTORICAL RESULTS - 08/07/2014 5:26 AM CDT {Testing performed by: [facility], [place] [address]} Interpretive Data If confirmation is required, call Laboratory Customer Service to request sample to be sent to [facility] for Hepatitis C Virus (HCV) RNA Detection and Quantitation by Real-Time Reverse Frame Hand-PCR (RT-PCR). Current interpretive data was last revised on 2011 us Dolly Villela MD LAB BLOOD ORDERABLES Final Result HISTORICAL RESULTS from Last 3 Months or Most Recently Relevant to Health Maintenance Insurance [employer] PPO Care Teams Soccer Player Relationship Specialty Start Date End Date Deb Jones MD [address] [facility] [address] [place] [address] PCP - General Family Medicine 06/06/18
--- OUTSIDE RECORDS SUMMARY | 2024-09-15 13:23 | XMS_ITS | Clinical Summary ---
Author Organization [facility] Address [address] [place] [address] Care Team Providers Care Service Desk Director Name Role Phone Deb Jones MD Primary Care Provider + Source Comments [facility],non-owned Affiliates and Associated Physician Practices is amultiple site organization consisting of ambulatory clinics and hospital sitesin [place], [place], [place] and [place]. This disclosure is being madepursuant to the Care Everywhere program and may not contain all information available regarding this patient. Last updated 18.[facility] Allergies No known active allergies Immunizations Immunization Administration Dates Next Due INFLUENZA VACCINE, QUADR. (F LUZONE; FLULAVAL; FLUARIX; AFLURIA QUADRIVALENT; 6MO+), 0.5 ML (IIV4) 03/08/2017 TDAP (7yrs+) 01/11/2018 Social History Tobacco Use Types Packs/Day Years Used Date Smoking Tobacco: Never Assessed Comments Unknown Sex and Gender Information Value Date Recorded Sex Assigned at Not on file Legal Sex Female 2:59 PM CDT Gender Identity Not on file Sexual Orientation Not on file Plan of Treatment Health Maintenance Due Date Last Done Comments HIV SCREENING 2009 HEPATITIS C SCREENING 10/05/2012 HEPATITIS B VACCINE (1 of 3 - 19+ 3-dose series) 2013 COVID-19 VACCINE (2023-2 5 season) 2024 DEPRESSION SCREENING 05/28/2024 INFLUENZA VACCINE (Season Ended) 2025 03/08/20 17 DTAP/TDAP/TD VACCINES (2 - T d or Tdap) 01/12/2028 01/11/2018 ZOSTER VACCINE (1 of 2) 2044 HIB VACCINE Aged Out No longer eligi ble based on patient's age to complete this topic HPV VACCINE Aged Out No longer eligi ble based on patient's age to complete this topic MENINGOCOCCAL (Group B) VACC INE SHARED DECISION-MAKING Aged Out No longer eligibl e based on patient's age to complete this topic MENINGOCOCCAL GROUPS A/C/Y/W VACCINE Aged Out No longer eligible b ased on patient's age to complete this topic PNEUMOCOCCAL VACCINE Aged Out No long er eligible based on patient's age to complete this topic Insurance MEDICAID - OUT OF STATE [employer] Care Teams Service Desk Director Relationship Specialty Start Date End Date Deb Jones MD [address] [place] [address] PCP - General Family Medicine 03/08/17
--- OUTSIDE RECORDS SUMMARY | 2024-09-15 13:23 | XMS_ITS | Clinical Summary ---
Author Organization [facility] Address [facility] [place] [address] Care Team Providers Care Va Underwriter Name Role Phone Deb Jones MD Primary Care Provider [phone]- [phone] Social History Tobacco Use Types Packs/Day Years Used Date Smoking Tobacco: Never Assessed Comments Unknown Sex and Gender Information Value Date Recorded Sex Assigned at Not on file Legal Sex Female 8:07 PM CDT Gender Identity Not on file Sexual Orientation Not on file Plan of Treatment Health Maintenance Due Date Last Done Comments Cervical Cancer Screening Pa p Smear (Age 21 to 29) Every 3 Years 1994 Cervical Cancer Screening 1994 Annual Physical 1997 Hepatitis C 2012 DTaP, Tdap and Td Vaccines ( 1 - Tdap) 2013 Hepatitis B Vaccines (1 of 3 - 19+ 3-dose series) 2013 COVID-19 Vaccine (2023-2 5 season) 2024 HPV Vaccines Aged Out No longer eligi ble based on patient's age to complete this topic Meningococcal B Vaccine Aged Out No l onger eligible based on patient's age to complete this topic Meningococcal Vaccine Aged Out No norman bart eligible based on patient's age to complete this topic Pneumococcal Vaccine: Pediat rics (0 to 5 Years) and At-Risk Patients (6 to 49 Years) Aged Out No longer eligible b ased on patient's age to complete this topic RSV Immunizations Under 20 Months Aged Out No longer eligible based on patient's age to complete this topic Care Teams Va Underwriter Relationship Specialty Start Date End Date Deb Jones MD [address] [place] [address] [place] [address] PCP - General 11/03/13
--- OUTSIDE RECORDS SUMMARY | 2024-09-15 13:23 | XMS_ITS | Clinical Summary ---
Author Organization [facility] Address [address] [place] [address] Care Team Providers Care Roll Shop Supervisor Name Role Phone Deb Jones MD Primary Care Provider [phone]- [phone] Allergies No known active allergies Medications omeprazole (PriLOSEC) 20 mg Capsule, Delayed Release(E.C.) Take 20 mg by mouth daily. Active dextroamphetamin e-amphetamine (ADDERALL) 10 mg tablet Take 10 mg by mouth daily. Active dextroamphetamin e-amphetamine (ADDERALL) 5 mg tablet Take 5 mg by mouth 2 times daily. Active propranoloL (INDERAL) 20 mg tablet Take 20 mg by mouth 3 times daily. Active escitalopram oxalate (LEXAPRO) 10 mg tablet Take 10 mg by mouth daily. Active Active Problems Problem Noted Date Diagnosed Date History of lymphoma 03/06/2022 Social History Tobacco Use Types Packs/Day Years Used Date Smoking Tobacco: Never Assessed Comments Unknown Sex and Gender Information Value Date Recorded Sex Assigned at Not on file Legal Sex Female 7:04 AM CDT Gender Identity Not on file Sexual Orientation Not on file Last Filed Vital Signs Vital Sign Reading Time Taken Comments Blood Pressure 121/76 03/06/2022 10:28 AM CDT Pulse 89 03/06/2022 10:28 AM CDT Temperature 36.7 C (98 F) 03/06/2022 10:28 AM CDT Respiratory Rate - - Oxygen Saturation 99% 03/06/2022 10:28 AM CDT Inhaled Oxygen Concentration - - Weight 134.7 kg (297 lb) 03/06/2022 10:28 AM CDT Height 165.1 cm (5' 5 ) 03/06/2022 10:28 AM CDT Body Mass Index 49.42 03/06/2022 10:28 AM CDT Plan of Treatment Health Maintenance Due Date Last Done Comments PNEUMOCOCCAL VACCINE 0-49 YEARS (1 of 2 - PCV) 2000 HEPATITIS B VACCINES (1 of 3 - 19+ 3-dose series) 2013 CERVICAL CANCER SCREENING 10/11/2015 HPV/Cotest (21-29) 10/11/2015 PAP SMEAR 10/11/2015 INFLUENZA VACCINE (#1) 2023 7, 03/25/2015 HPV/Cotest (30-65) 2024 DTAP/TDAP/TD VACCINES (2 - T d or Tdap) 01/12/2028 01/11/2018 HPV VACCINES Aged Out No longer eligi ble based on patient's age to complete this topic Insurance * Guarantor: Vasu Damon Account Type Relation to Patient Date of Phone Billing Address Personal/Family Self 1995 [address] [place] [id number] [place] [id number] Care Teams Roll Shop Supervisor Relationship Specialty Start Date End Date Deb Jones MD PCP - General Family Practice 03/06/22
--- NOTE | 2024-09-15 14:12 | ED_ITS ---
HPI - Abdominal Pain General Chief Complaint: Abdominal Pain Stated Complaint: Abdominal pain-nausea Time Seen by Provider: 09/15/24 13:19 Source: patient, RN notes reviewed and old records reviewed Mode of arrival: ambulatory Limitations: no limitations History of Present Illness HPI narrative: This is a 28 year old female with history of biliary colic who presents for evaluation of mid abdominal pain. She states she has been having dull aching pain intermittently for 2 weeks. She reports she is having intermittent diarrhea and constipation. Her pain is worse with eating. She nausea without vomiting. She has not taken anything for pain. She reports pain 3/10 at this time . She denies any pain medication or antiemetic. 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 Family History Family History Mother Anemia Melanoma Father Asthma GERD (gastroesophageal reflux disease) Anxiety Malignant neoplasm of prostate Grandparent Family history of malignant neoplasm of breast maternal grandmother, paternal grandmother Diabetes mellitus Malignant neoplasm of prostate paternal and maternal grandfather Melanoma Sibling Scoliosis sister Other Breast cancer Depression Social History Social History Social History: Smoking status: Never smoker Second hand tobacco smoke exposure: No Alcohol intake: current Alcohol use details: Occasionally Substance use: current Substance use type: marijuana Other substance usage details: 2 x week Do You Feel Safe in your Home?: Yes Lack of Transportation: No Lack of Food: Never True Current Housing: I Have Housing Concerned About Future Housing: No Difficulty Paying Gas/Electric Bills: No Difficulty Paying for Meds: No Currently Unemployed: No Education: Bachelor's Degree Difficulty w/ Childcare or Family Care: No Living arrangements: with family Occupation/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 Gender identity (if verbalized by the patient): Female Sexual Orientation (if Verbalized by the Patient): Lesbian, [place], or Homosexual Exam 2 Const: General: alert Nutritional Appearance: obese O rientation/consciousness: patient oriented x3 HENMT: Head: normal to inspection Mouth: Yes Normal oral and palatal mucosa present and Yes lip normal Eyes: EOM: EOMs intact bilaterally Resp: Effort & Inspection: normal respiratory effort Auscultation: clear to auscultation bilaterally Cardio: Rate: regular rate Rhythm: regular rhythm Heart sounds: no murmurs GI: GI Palp: Yes Soft to palpation, No Tenderness to palpation present (GI), No Guarding due to palpation present (GI), No Rigid due to palpation, No Hernia present and No Rebound tenderness present Auscultation: normal bowel sounds Back/Spine/Pelvis: Back: no CVA tenderness Skin: General skin exam: normal color Rashes: no rashes Wounds: no wounds Neuro: General: patient oriented x3 and moves all extremities Cranial nerves: Yes Nystagmus not present Extrem: General: normal to inspection Psych: Mental Status: mental status grossly normal Affect: normal affect Attitude: cooperative Course Reevaluation(s) Reevaluation #1: I have discussed with patient that CT only shows small hernia but gallbladder and pancreas are normal on CT. We discussed needing GI follow up for further evaluation as she may need EGD or HIDA scan. She understands and denies any other questions or concerns. Date: 09/15/24 Time: 14:17 Vital Signs Vital signs: Vital Signs Temperature 98.2 F 09/15/24 11:48 Pulse Rate 68 09/15/24 11:48 Respiratory Rate 18 09/15/24 11:48 Blood Pressure 137/85 09/15/24 11:48 Pulse Oximetry 100 09/15/24 11:48 Temperature 98.2 F 09/15/24 11:48 Pulse Rate 84 09/15/24 14:31 Respiratory Rate 16 09/15/24 14:31 Blood Pressure 137/84 09/15/24 14:31 Pulse Oximetry 98 09/15/24 14:31 MDM - Abdominal Pain Differential Diagnosis Differential diagnosis: Likely abdominal pain, constipation, diverticulitis, gastroenteritis, pancreatitis, small bowel obstruction and other (biliary colic, cholelithiasis) Medical Records Attestation: I reviewed the patient's medical records. Lab Data Attestation: I reviewed the patient's lab results. 09/15/24 12:25 09/15/24 12:25 Labs: Lab Results 09/15/24 09/15/24 Range/Units 12:25 12:32 WBC 6.0 (4.5-10.0) K/mm3 RBC 4.68 (4.2-5.4) M/mm3 Hgb 14.0 (12.0-15.0) g/dL Hct 41.1 (37.0-47.0) % MCV 87.8 (80-100) fl MCH 29.9 (26-34) pg MCHC 34.1 (32-36) g/dl RDW 12.9 (11.5-14.5) % Plt Count 245 (150-375) k/mm3 MPV 11.0 H (7.4-10.4) fl Immature Gran % (Auto) 0.5 (0-0.5) % Neut % (Auto) 52.9 (45.5-73.1) % Lymph % (Auto) 37.8 (18.3-44.2) % [place] % (Auto) 6.1 (2.6-8.5) % Eos % (Auto) 2.2 (0-4.4) % Baso % (Auto) 0.5 (0.2-1.2) % Lymph # (Auto) 2.28 (0.9-3.2) K/mm3 [place] # (Auto) 0.4 (0.1-0.6) K/mm3 Eos # (Auto) 0.1 (0-0.3) K/mm3 Baso # (Auto) 0.0 (0.0-0.1) K/mm3 Abs Immat Gran (auto) 0.03 (0.00-0.031) K/mm3 Absolute Neuts (auto) 3.2 (1.3-6.7) K/mm3 Absolute Nucleated RBC 0.000 (0.0-0.012) K/mm3 Nucleated RBC % 0.0 (0.0-0.2) % Sodium 139 (137-145) mmol/L Potassium 3.7 (3.4-5.0) mmol/L Chloride 104 (98-107) mmol/L Carbon Dioxide 26 (22-30) mmol/L Anion Gap 9 (4-12) mmol/L BUN 16 (7-17) mg/dL Creatinine 0.83 (0.7-1.0) mg/dL Estim Creat Clear Calc 127 ml/min Estimated GFR > 60 (59 - ) Glucose 86 (65-110) mg/dL Calcium 8.8 (8.4-10.2) mg/dL Total Bilirubin 0.9 (0.2-1.3) mg/dL AST 27 (14-36) U/L ALT 37 H (6-35) U/L Alkaline Phosphatase 65 (38-126) U/L Total Protein 7.0 (6.3-8.2) g/dL Albumin 4.1 (3.5-5.1) g/dL Lipase 52 (23-300) U/L Urine Color Yellow (Yellow) Urine Appearance Clear (Clear) Urine pH 7.0 (5.0-9.0) Ur Specific [place] 1.011 (1.001-1.035) Urine Protein Negative (Negative) mg/dL Urine Glucose (UA) Negative (Negative) mg/dL Urine Ketones Negative (Negative) mg/dL Ur Blood (Man) Negative (Negative) Urine Nitrate Negative (Negative) Urine Bilirubin Negative (Negative) Urine Urobilinogen 0.2 (<2.0) mg/dL Leukocyte Esterase Rfl Negative (Negative) EYAD/UL POC Urine HCG, Qual Negative (Negative) Imaging Data Radiologist's impression: ITS Impressions Abdomen/Pelvis CT 09/15/24 13:57 IMPRESSION: 1. No acute intra-abdominal/pelvic process. 2. Small fat-containing umbilical hernia. Discharge Plan Discharge Clinical Impression: Abdominal pain, epigastric Patient Disposition: Home Condition: Stable Instructions: Antibiotic Form, Peptic Ulcer (ED), Abdominal Pain (ED) Additional Instructions: I recommend that you follow up with room service attendant or your primary care provider for further evaluation. I have provided information for our room service attendant communications programmer. Patient Language: Guamanian Prescriptions: No Action dextroamphetamine-amphetamine [Adderall] 5 mg tablet 5 mg PO BID Qty: 60 0RF omeprazole 40 mg capsule,delayed release(DR/EC) 40 mg PO DAILY Qty: 90 2RF Follow-up/Referrals: Howrad Angel MD [Primary Care Provider] - London Madden MD [Physician] -
[2024-09-15 14:31] VITALS: BP 137/84; PULSE 84; RESP 16; O2SAT 98
--- OUTSIDE RECORDS SUMMARY | 2024-09-15 15:08 | XMS_ITS | Clinical Summary ---
Author Organization [facility] Address [facility] [place] [address] Care Team Providers Care Warp Tier Name Role Phone Deb Jones MD Primary Care Provider +1- [phone] Social History Tobacco Use Types Packs/Day Years [...] age to complete this topic Care Teams Warp Tier Relationship Specialty Start Date End Date Deb Jones MD [address] [place] [address] PCP - General 11/03/13
--- OUTSIDE RECORDS SUMMARY | 2024-09-15 15:08 | XMS_ITS | Clinical Summary ---
Author Organization [facility] Address [address] [place] [address] Care Team Providers Care Spice Miller Name Role Phone Deb Jones MD Primary Care Provider + Source Comments [facility],non-owned Affiliates and Associated Physician Practices is amultiple site organization consisting of ambulatory clinics and hospital sitesin [place], [place], [place] and [place]. This disclosure is being madepursuant to the Care Everywhere program and may not contain all information available regarding this patient. Last updated 18.[facility] Allergies No known active allergies Immunizations Immunization [...] [facility] Care Teams Spice Miller Relationship Specialty Start Date End Date Deb Jones MD [address] [place] [address] PCP - General Family Medicine 03/08/17
--- OUTSIDE RECORDS SUMMARY | 2024-09-15 15:08 | XMS_ITS | Clinical Summary ---
Author Organization [facility] Address [address] [place] [address] Care Team Providers Care International Marketing Executive Name Role Phone Deb Jones MD Primary Care Provider +1- [phone] Allergies No known active allergies Medications omeprazole [...] patient's age to complete this topic Insurance Care Teams International Marketing Executive Relationship Specialty Start Date End Date Deb Jones MD PCP - General Family Practice 03/06/22
--- OUTSIDE RECORDS SUMMARY | 2024-09-15 15:08 | XMS_ITS | Clinical Summary ---
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 Current interpretive data was last revised on 2011 us Dolly Villela MD LAB BLOOD ORDERABLES Final Result HISTORICAL RESULTS from Last 3 Months or Most Recently Relevant to Health Maintenance Insurance [employer] PPO Care Teams Vice President Biostatistics Relationship Specialty Start Date End Date Deb Jones MD [address] [facility] [address] [place] [address] PCP - General Family Medicine 06/06/18
--- OUTSIDE RECORDS SUMMARY | 2024-09-15 15:08 | XMS_ITS | Referral Summary ---
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 Current interpretive data was last revised on 2011 us Dolly Villela MD LAB BLOOD ORDERABLES Final Result HISTORICAL RESULTS from Last 3 Months or Most Recently Relevant to Health Maintenance Insurance [employer] PPO [facility] HMO Care Teams Property Staff Accountant Relationship Specialty Start Date End Date Deb Jones MD [address] [facility] [address] [place] [id number] PCP - General Family Medicine 06/06/18
== END 2024-09-15 14:32 | disposition home or self-care (01) ==
PROVIDERS: Student in an Organized Health Care Education/Training Program; Emergency Provider General Practice; PCP Family Medicine
DX: R10.13 Epigastric pain (principal); E66.01 Morbid (severe) obesity due to excess calories; Z68.43 Body mass index [BMI] 50.0-59.9, adult; F41.9 Anxiety disorder, unspecified; F32.A Depression, unspecified; F90.9 Attention-deficit hyperactivity disorder, unspecified type; Z85.72 Personal history of non-Hodgkin lymphomas; Z92.21 Personal history of antineoplastic chemotherapy; K42.9 Umbilical hernia without obstruction or gangrene; Z79.899 Other long term (current) drug therapy
CPT/HCPCS: 36415; 74177; 80053; 81003; 81025; 83690; 85025; 99284; Q9967

== ENCOUNTER 2024-10-01 01:51 | Day surgery (SDC) | payer OTHER, SELFPAY ==
[2024-09-25 14:44] VITALS: BMI 51.6
--- OUTSIDE RECORDS SUMMARY | 2024-10-01 01:54 | XMS_ITS | Clinical Summary ---
Author Organization [facility] Address [facility] [place] [address] Care Team Providers Care Quantitative Researcher Name Role Phone Deb Jones MD Primary Care Provider +1- [phone] Social History Tobacco Use Types Packs/Day Years [...] age to complete this topic Care Teams Quantitative Researcher Relationship Specialty Start Date End Date Deb Jones MD [address] [place] [address] PCP - General 11/03/13
--- OUTSIDE RECORDS SUMMARY | 2024-10-01 01:54 | XMS_ITS | Clinical Summary ---
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 Current interpretive data was last revised on 2011 us Dolly Villela MD LAB BLOOD ORDERABLES Final Result HISTORICAL RESULTS from Last 3 Months or Most Recently Relevant to Health Maintenance Insurance [employer] PPO Care Teams Merchandising Stock Associate Relationship Specialty Start Date End Date Deb Jones MD [address] [facility] [address] [place] [address] PCP - General Family Medicine 06/06/18
--- OUTSIDE RECORDS SUMMARY | 2024-10-01 01:54 | XMS_ITS | Clinical Summary ---
Author Organization [facility] [employer] Address [address] [place] [address] Care Team Providers Care Miller Supervisor Name Role Phone Deb Jones MD Primary Care Provider + Source Comments [facility] [employer],non-owned Affiliates and Associated Physician Practices is amultiple site organization consisting of ambulatory clinics and hospital sitesin [place], [place], [place] and [place]. This disclosure is being madepursuant to the Care Everywhere program and may not contain all information available regarding this patient. Last updated 18.[facility] [employer] Allergies No known active allergies Immunizations Immunization [...] [facility] Care Teams Miller Supervisor Relationship Specialty Start Date End Date Deb Jones MD [address] [place] [address] PCP - General Family Medicine 03/08/17
--- OUTSIDE RECORDS SUMMARY | 2024-10-01 01:54 | XMS_ITS | Referral Summary ---
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 Current interpretive data was last revised on 2011 us Dolly Villela MD LAB BLOOD ORDERABLES Final Result HISTORICAL RESULTS from Last 3 Months or Most Recently Relevant to Health Maintenance Insurance [employer] PPO [facility] HMO Care Teams Preboarder Relationship Specialty Start Date End Date Deb Jones MD [address] [facility] [address] [place] [id number] PCP - General Family Medicine 06/06/18
--- OUTSIDE RECORDS SUMMARY | 2024-10-01 01:54 | XMS_ITS | Clinical Summary ---
Author Organization [facility] Agatha De Guzman Address [address] [place] [address] Care Team Providers Care Beating Machine Operator Name Role Phone Deb Jones MD Primary Care Provider +1- [phone] Allergies No known active allergies Medications omeprazole [...] Health Maintenance Due Date Last Done Comments HEPATITIS B VACCINES (1 of 3 - 19+ 3-dose series) 2013 CERVICAL CANCER SCREENING 10/11/2015 HPV/Cotest (21-29) 10/11/2015 PAP SMEAR 10/11/2015 INFLUENZA VACCINE (#1) 2023 7, 03/25/2015 HPV/Cotest (30-65) 2024 DTAP/TDAP/TD VACCINES (2 - Td or Tdap) 01/12/2028 01/11/2018 HPV VACCINES Aged Out No longer eligi ble based on patient's age to complete this topic Insurance Care Teams Beating Machine Operator Relationship Specialty Start Date End Date Deb Jones MD PCP - General Family Practice 03/06/22
[2024-10-01 10:17] VITALS: BP 140/83; PULSE 95; RESP 16; TEMP 36.3; O2SAT 99; BMI 51.6
[2024-10-01] MEDS: LACTATED RINGERS 1,000 ML 150 ML IV CONT (10:26)
--- NOTE | 2024-10-01 10:41 | WPDHPUPDATE1 ---
History and Physical Update Update Date/Time: 10/01/24 10:41 History and Physical has been reviewed, including an updated exam of the patient. There are NO changes in the patient's condition. Risks, benefits, and alternatives have been discussed and questions answered. Patient agrees to proceed with procedure.
--- NOTE | 2024-10-01 11:18 | WPDANESEPPF ---
Anes - Initial Pre Proc Eval Procedure: Operation Date: 10/01/24 11:30 Proposed Procedures p Esophagogastroduodenoscopy - London Madden MD Date/Time: 10/01/24 11:18 Surgeon: London Madden MD Pre Op Diagnosis: Abdominal distension (gaseous), GERD Patient Data Age: 28 Gender: F Height: 1.65 m Weight: 140.8 kg Last Vital Signs Temp 97.4 F L 10/01/24 10:17 Pulse 95 10/01/24 10:17 Resp 16 10/01/24 10:17 BP 140/83 10/01/24 10:17 Pulse Ox 99 10/01/24 10:17 O2 Del Method Room Air 10/01/24 10:17 Allergies Allergy/AdvReac Type Severity Reaction Status Date / Time buspirone AdvReac Intermediate Dizziness Verified 10/01/24 10:16 Home Medications ?Medication ?Instructions ?Recorded ?Confirmed ?Type dextroamphetamine-amphetamine 5 mg 5 mg PO BID #60 tabs 08/18/24 10/01/24 Rx tablet (Adderall) omeprazole 40 mg capsule,delayed 40 mg PO DAILY #90 caps 08/25/24 10/01/24 Rx release famotidine 20 mg tablet (Pepcid AC) 20 mg PO DAILY 09/17/24 10/01/24 History Patient hx anesthesia problems: none Family hx anesthesia problems: none Results Review: All pre-operative results and documents have been reviewed as part of the pre-operative evaluation. 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 Family History Family History Mother Anemia Melanoma Father Asthma GERD (gastroesophageal reflux disease) Anxiety Malignant neoplasm of prostate Grandparent Family history of malignant neoplasm of breast maternal grandmother, paternal grandmother Diabetes mellitus Malignant neoplasm of prostate paternal and maternal grandfather Melanoma Sibling Scoliosis sister Other Breast cancer Depression Social History Social History Social History: Smoking status: Never smoker Second hand tobacco smoke exposure: No Alcohol intake: current Alcohol use details: Drinks maybe 3 times a year Substance use: never Substance use type: does not use Other substance usage details: 2 x week Do You Feel Safe in your Home?: Yes Lack of Transportation: No Lack of Food: Never True Current Housing: I Have Housing Concerned About Future Housing: No Difficulty Paying Gas/Electric Bills: No Difficulty Paying for Meds: No Currently Unemployed: No Education: Bachelor's Degree Difficulty w/ Childcare or Family Care: No Living arrangements: with family Occupation/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 Gender identity (if verbalized by the patient): Female Sexual Orientation (if Verbalized by the Patient): Lesbian, [place], or Homosexual Spiritual care concerns: No Anes - Eval Final PreProcedure Day of Procedure 10/01/24 11:18 Patient weight: super morbidly obese Heart: regular rate and rhythm Lungs: clear to auscultation Airway: Mallampati scale class II Neurological: alert and oriented Last oral intake: >/= 8 hours ASA classification: III Emergent: no Anesthetic plan: proceed Anesthesia type and monitoring: general GIVS and standard monitoring Results Review: All pre-operative results and documents have been reviewed as part of the pre-operative evaluation. Informed Consent: The patient's anesthetic plan and its attendant risks and benefits were discussed with the patient/family/POA. Questions were solicited and answers provided to the satisfaction of the patient/family/POA.
[2024-10-01 11:21] LABS: BEDSIDEPREGUCG Negative (Negative)
[2024-10-01 11:23] VITALS: BP 97/62; PULSE 98; RESP 20; O2SAT 99
[2024-10-01 11:33] VITALS: BP 110/73; PULSE 75; RESP 20; O2SAT 96
[2024-10-01 11:43] VITALS: BP 107/73; PULSE 74; RESP 18; O2SAT 100
== END 2024-10-01 11:50 | disposition home or self-care (01) ==
PROVIDERS: PCP Family Medicine; Referring Provider Internal Medicine Gastroenterology; Visit Provider Internal Medicine Gastroenterology
PROC: 0DJ08ZZ Inspection of Upper Intestinal Tract, Via Natural or Artificial Opening Endoscopic (ICD-10-PCS; CPT 43239; principal; 2024-10-01 11:30)
DX: K21.00 Gastro-esophageal reflux disease with esophagitis, without bleeding (principal); K29.50 Unspecified chronic gastritis without bleeding; F40.240 Claustrophobia; F41.9 Anxiety disorder, unspecified; F32.A Depression, unspecified; F90.9 Attention-deficit hyperactivity disorder, unspecified type; E66.01 Morbid (severe) obesity due to excess calories; Z68.43 Body mass index [BMI] 50.0-59.9, adult; Z98.890 Other specified postprocedural states; Z85.72 Personal history of non-Hodgkin lymphomas; Z92.21 Personal history of antineoplastic chemotherapy; Z80.8 Family history of malignant neoplasm of other organs or systems; Z80.42 Family history of malignant neoplasm of prostate; Z80.3 Family history of malignant neoplasm of breast
CPT/HCPCS: 43239; 88305; J2003; J2704; J7120

== ENCOUNTER 2024-10-13 08:43 | Outpatient (CLI) | payer OTHER, SELFPAY ==
--- NOTE | ~2024-10-13 | NM_ITS ---
EXAM: NM gastric emptying study DATE: 10/13/2024 13:26 INDICATION: Abdominal distention TECHNIQUE: A gastric emptying study was performed using the methodology of Valeria VU, et al. J Nucl Med 2007; 48:568-572. The patient was given a meal consisting of 2 scrambled eggs labeled with 0.989 mCi Tc-99m sulfur colloid, 2 slices of toast, two packages of jam, and approximately 120 mL of water . Simultaneous anterior and posterior 1-min images of the abdomen were obtained with the patient supi ne at multiple time points over a total period of 4 hours. The geometric mean of anterior and posteri or views was determined, and the percentage retention was calculated for each time point. COMPARISON: None. FINDINGS: Gastric retention of the radiotracer-labeled meal was 67%, 23%, and 7% at the 1-hour, 2-hour, and 4-h our time points, respectively. With this technique, apparent rapid gastric emptying is suggested by < 30% gastric retention at 1 hour. Delayed gastric emptying is defined by gastric retention of >90% at 1 hour, >60% retention at 2 hours, or >10% retention at 4 hours. IMPRESSION: 1. Normal gastric emptying. Reviewed, dictated and finalized at location A. IMPRESSION: 1. Normal gastric emptying.
--- OUTSIDE RECORDS SUMMARY | 2024-10-13 08:53 | XMS_ITS | Referral Summary ---
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 [address]} Interpretive Data If confirmation is required, call Laboratory Customer Service to request sample to be sent to [facility] for Hepatitis C Virus (HCV) RNA Detection and Quantitation by Real-Time Reverse Graphic Art Sales Representative-PCR (RT-PCR). Current interpretive data was last revised on 2011 us Dolly Villela MD LAB BLOOD ORDERABLES Final Result HISTORICAL RESULTS from Last 3 Months or Most Recently Relevant to Health Maintenance Insurance HEALTH ALLIANCE PPO [facility] HMO Care Teams Telecommunication Equipment Repairer Relationship Specialty Start Date End Date Deb Jones MD [address] [facility] [address] [place] [id number] PCP - General Family Medicine 06/06/18
--- OUTSIDE RECORDS SUMMARY | 2024-10-13 08:53 | XMS_ITS | Clinical Summary ---
Author Organization [facility] Agatha De Guzman Address [address] [place] [address] Care Team Providers Care Animated Cartoons Painter Name Role Phone Deb Jones MD Primary Care Provider +1- [phone] Allergies No known active allergies Medications omeprazole [...] to complete this topic Insurance Care Teams Animated Cartoons Painter Relationship Specialty Start Date End Date Deb Jones MD PCP - General Family Practice 03/06/22
--- OUTSIDE RECORDS SUMMARY | 2024-10-13 08:53 | XMS_ITS | Clinical Summary ---
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 Current interpretive data was last revised on 2011 us Dolly Villela MD LAB BLOOD ORDERABLES Final Result HISTORICAL RESULTS from Last 3 Months or Most Recently Relevant to Health Maintenance Insurance HEALTH ALLIANCE PPO Care Teams Veterinary Poultry Inspector Relationship Specialty Start Date End Date Deb Jones MD [address] [facility] [address] [place] [address] PCP - General Family Medicine 06/06/18
--- OUTSIDE RECORDS SUMMARY | 2024-10-13 08:53 | XMS_ITS | Clinical Summary ---
Author Organization [facility] Address [address] [place] [address] Care Team Providers Care Journeyman Electrician Name Role Phone Dbe Jones MD Primary Care Provider + Source Comments [facility],non-owned Affiliates and Associated Physician Practices is amultiple site organization consisting of ambulatory clinics and hospital sitesin [place], [place], [place] and [place]. This disclosure is being madepursuant to the Care Everywhere program and may not contain all information available regarding this patient. Last updated 18.[facility] Allergies No known active allergies Immunizations Immunization [...] Health Maintenance Due Date Last Done Comments PAP SMEAR 1994 HIV SCREENING 2009 HEPATITIS C SCREENING 10/05/2012 [...] OUT OF STATE HEALTH ALLIANCE HEALTH ALLIANCE AETNA SELF PAY NO INSURANCE Member Subscriber Plan / Payer (Ef fective for All Dates) Name:Dexter Damon Member ID:Not on file Relation to Subscriber:Not on file Name:DEXTER DAMON Subscriber ID:Not on file (Home) Address: [address] [place] [id number] Payer ID:Not on file Group ID:Not on file Type:Self Pay Address: [place], [place] Care Teams Journeyman Electrician Relationship Specialty Start Date End Date Deb Jones MD [address] [place] [address] PCP - General Family Medicine 03/08/17
== END 2024-10-13 08:44 | disposition home or self-care (01) ==
PROVIDERS: PCP Family Medicine; Visit Provider Internal Medicine Gastroenterology
DX: R14.0 Abdominal distension (gaseous) (principal); K21.9 Gastro-esophageal reflux disease without esophagitis
CPT/HCPCS: 78264; A9541

== ENCOUNTER 2024-10-16 08:15 | Outpatient (CLI) | payer OTHER, SELFPAY ==
--- NOTE | ~2024-10-16 | NM_ITS ---
EXAMINATION: NM hepatobiliary w pharm DATE: 10/16/2024 12:51 INDICATION: Abdominal distention COMPARISON: CT abdomen pelvis dated 09/15/2024 TECHNIQUE: 4.8 mCi Tc-99m mebrofenin (Choletec) was administered intravenously. Scintigraphic images of the abdomen were obtained for one hour. 2.7 mcg sincalide (Kinevac) was administered by slow intr avenous infusion, and imaging was continued for 30 minutes. Gallbladder ejection fraction was calcula cori by the technologist. FINDINGS: There is normal clearance of radiotracer from the blood pool. There is homogeneous tracer uptake by t he liver. Activity progresses to the gallbladder and bowel. The gallbladder ejection fraction (GBEF) is 5% (normal 10-90%, but most patient with gallbladder dysfunction have GBEF < 35% which does overl ap with the normal range). IMPRESSION: 1. Gallbladder ejection fraction below normal limits which can be seen with gallbladder dysfunction or chronic cholecystitis in the appropriate clinical setting. Reviewed, dictated and finalized at location A. IMPRESSION: 1. Gallbladder ejection fraction below normal limits which can be seen with ga llbladder dysfunction or chronic cholecystitis in the appropriate clinical sett ing.
--- OUTSIDE RECORDS SUMMARY | 2024-10-16 08:21 | XMS_ITS | Clinical Summary ---
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, [place] [address]} Interpretive Data If confirmation is required, call Laboratory Customer Service to request sample to be sent to [facility] for Hepatitis C Virus (HCV) RNA Detection and Quantitation by Real-Time Reverse Civil Engineering Assistant-PCR (RT-PCR). Current interpretive data was last revised on 2011 us Dolly Villela MD LAB BLOOD ORDERABLES Final Result HISTORICAL RESULTS from Last 3 Months or Most Recently Relevant to Health Maintenance Insurance HEALTH ALLIANCE PPO Care Teams Chairman And Chief Executive Officer Relationship Specialty Start Date End Date Deb Jones MD [address] [facility] [address] [place] [address] PCP - General Family Medicine 06/06/18
--- OUTSIDE RECORDS SUMMARY | 2024-10-16 08:21 | XMS_ITS | Clinical Summary ---
Author Organization [facility] Agatha De Guzman Address [address] [place] [address] Care Team Providers Care Vice President Financial Name Role Phone Deb Jones MD Primary Care Provider +1- [phone] Allergies No known active allergies Medications omeprazole [...] of 3 - 19+ 3-dose series) 2013 HPV/Cotest (21-29) 10/11/2015 INFLUENZA VACCINE (#1) 2023 7, 03/25/2015 CERVICAL CANCER SCREENING 2024 HPV/Cotest (30-65) 2024 PAP SMEAR 2024 DTAP/TDAP/TD VACCINES (2 - Td or Tdap) 01/12/2028 01/11/2018 HPV VACCINES Aged Out No longer eligi ble based on patient's age to complete this topic Insurance Care Teams Vice President Financial Relationship Specialty Start Date End Date Deb Jones MD PCP - General Family Practice 03/06/22
--- OUTSIDE RECORDS SUMMARY | 2024-10-16 08:21 | XMS_ITS | Referral Summary ---
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 Current interpretive data was last revised on 2011 us Dolly Villela MD LAB BLOOD ORDERABLES Final Result HISTORICAL RESULTS from Last 3 Months or Most Recently Relevant to Health Maintenance Insurance HEALTH ALLIANCE PPO [facility] HMO Care Teams Erector Operator Relationship Specialty Start Date End Date Deb Jones MD [address] [facility] [address] [place] [id number] PCP - General Family Medicine 06/06/18
--- OUTSIDE RECORDS SUMMARY | 2024-10-16 08:21 | XMS_ITS | Clinical Summary ---
Author Organization [facility] [email or web address] Address [address] [place] [address] Care Team Providers Care Freight Flagman Name Role Phone Deb Jones MD Primary Care Provider + Source Comments [facility],non-owned Affiliates and Associated Physician Practices is amultiple site organization consisting of ambulatory clinics and hospital sitesin [place], [place], [place] and [place]. This disclosure is being madepursuant to the Care Everywhere program and may not contain all information available regarding this patient. Last updated 18.[facility] [email or web address] Allergies No known active allergies Immunizations Immunization [...] DAMON Subscriber ID:Not on file (Home) Address: [address] [place] [id number] Payer ID:Not on file Group ID:Not on file Type:Self Pay Address: [place], [place] Care Teams Freight Flagman Relationship Specialty Start Date End Date Deb Jones MD [address] [place] [address] PCP - General Family Medicine 03/08/17
== END 2024-10-16 08:16 | disposition home or self-care (01) ==
LOC: ANHIMG 08:19
PROVIDERS: PCP Family Medicine; Visit Provider Internal Medicine Gastroenterology
DX: K82.8 Other specified diseases of gallbladder (principal); K81.1 Chronic cholecystitis
CPT/HCPCS: 78227; A9537; J2805

== ENCOUNTER 2024-11-21 00:26 | Outpatient (CLI) | payer OTHER, SELFPAY ==
[2024-11-21 09:30] LABS: Alanine Aminotransferase 40 U/L (6-35); Alkaline Phosphatase 59 U/L (38-126); Amylase 54 U/L (30-110); Aspartate Amino Transferase 27 U/L (14-36); Bilirubin,Total 1.1 mg/dL (0.2-1.3); Lipase 45 U/L (23-300); Total Protein 7.3 g/dL (6.3-8.2)
== END 2024-11-21 00:27 | disposition home or self-care (01) ==
PROVIDERS: PCP Family Medicine; Visit Provider Surgery
DX: K80.20 Calculus of gallbladder without cholecystitis without obstruction (principal); Z01.818 Encounter for other preprocedural examination
CPT/HCPCS: 36415; 80076; 82150; 83690

== ENCOUNTER 2024-11-24 01:41 | Day surgery (SDC) | payer OTHER, SELFPAY ==
[2024-11-20 15:41] VITALS: BMI 51.7
--- NOTE | 2024-11-20 15:48 | PC.NURSE ---
Report to the Outpatient Waiting Room, entrance under the green pavilion located off [facility], at time _1130_ on date _[id number]_. Planned Procedure Time: _130pm_.? Time changes happen often and if your time is changed the preop area will call you the afternoon before. - You and your visitor will be asked to self-screen and do not enter if you have any COVID symptoms. Please call surgeon if you need to reschedule. - A mask is optional within the hospital at this time. Patients may have clear liquids (water, carbonated beverages, clear teas, apple juice) until 3 hours prior to surgery with a maximum of 20 ounces. - No food from midnight until time of surgery and no smoking, or chewing tobacco (or any form of nicotine). No chewing gum, candy or mints. Take only the following medications with a SIP of water on the morning of surgery: __None____ DO NOT STOP ANY OF YOUR OTHER PRESCRIPTION MEDICATIONS PRIOR TO SURGERY EXCEPT THE FOLLOWING Hold all vitamins and supplements for 3 days per anesthesiologist. Medications to discontinue per physician Date to take last dose____ Please no make-up, nail brazilian, hairspray, perfume, deodorant, or body powder the day of surgery.? No jewelry (including any body piercings) or valuables the day of surgery, leave them at home.? Please take a shower or bath the night before, or the morning of, surgery with an antibacterial soap.? Wear comfortable, loose fitting clothing.? - Jewelry must be removed prior to entering the operating room.? Rings and piercings that are not removed may be cut off. - The hospital will not accept responsibility for valuables.? - Please leave all valuables, including medications, at home the day of surgery. If you are going home after surgery, a licensed hazardous materials tanker driver must drive you home.? - NO public transportation without another adult if you receive anesthesia. - We recommend that an adult stay with you for 24 hours following discharge. - We also recommend that you do not drive, make important decision, drink alcoholic beverages, or take any drugs that were not prescribed by your health care provider for at least 24 hours after your discharge time. Follow any additional instructions given to you from your surgeon. Telephone instructions given to __Morgan__and asked if any additional questions and then verbalized understanding. Patient advised to call surgeon office or pre surgery nurse liaison [phone] if any additional questions.
[2024-11-24] VITALS (9 sets, daily range): BP systolic 101–133; BP diastolic 72–90; PULSE 75–106; RESP 14–22; TEMP 36.3; O2SAT 99–100
[2024-11-24] MEDS: ACETAMINOPHEN 500 MG TABLET 1000 MG PO (11:30)
[2024-11-24] MEDS: KETOROLAC 15 MG/ML VIAL (*BKC) IV PUSH (11:38)
[2024-11-24 11:52] LABS: BEDSIDEPREGUCG Negative (Negative)
--- NOTE | 2024-11-24 12:45 | P.PNAN_ITS ---
Anes - Initial Pre Proc Eval Procedure: Operation Date: 11/24/24 13:00 Proposed Procedures p Laparoscopic Cholecystectomy, Possible Open - Landon Flores DO Date/Time: 11/24/24 12:45 Surgeon: Landon Flores DO Pre Op Diagnosis: symp cholelithiasis Patient Data Age: 29 Gender: F Height: 1.65 m Weight: 141.6 kg Last Vital Signs Temp 36.3 C L 11/24/24 11:20 Pulse 91 11/24/24 11:20 Resp 14 11/24/24 11:20 BP 125/78 11/24/24 11:20 Pulse Ox 99 11/24/24 11:20 O2 Del Method Room Air 11/24/24 11:20 Allergies Allergy/AdvReac Type Severity Reaction Status Date / Time buspirone AdvReac Intermediate Dizziness Verified 11/24/24 11:50 Home Medications ?Medication ?Instructions ?Recorded ?Confirmed ?Type dextroamphetamine-amphetamine 5 mg 5 mg PO BID #60 tabs 11/18/24 11/24/24 Rx tablet (Adderall) omeprazole 40 mg capsule,delayed 40 mg PO DAILY #90 caps 11/18/24 11/24/24 Rx release Laboratory Tests 11/24/24 11:30 POC Urine HCG, Qual Negative (Negative) Patient hx anesthesia problems: none Family hx anesthesia problems: none Results Review: All pre-operative results and documents have been reviewed as part of the pre- operative evaluation. 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 Family History Family History Mother Anemia Melanoma Father Asthma GERD (gastroesophageal reflux disease) Anxiety Malignant neoplasm of prostate Grandparent Family history of malignant neoplasm of breast maternal grandmother, paternal grandmother Diabetes mellitus Malignant neoplasm of prostate paternal and maternal grandfather Melanoma Sibling Scoliosis sister Other Breast cancer Depression Social History Social History Social History: Smoking status: Never smoker Second hand tobacco smoke exposure: No Alcohol intake: current Alcohol use details: Drinks maybe 3 times a year Substance use: never Substance use type: marijuana Other substance usage details: smoke occasionally and edibles weekly Do You Feel Safe in your Home?: Yes Lack of Transportation: No Lack of Food: Never True Current Housing: Decline to Answer Concerned About Future Housing: Decline to Answer Difficulty Paying Gas/Electric Bills: Decline to Answer Difficulty Paying for Meds: Decline to Answer Currently Unemployed: Decline to Answer Education: Decline to Answer Difficulty w/ Childcare or Family Care: Decline to Answer Living arrangements: with family Additional living arrangements comments: Occupation/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 Gender identity (if verbalized by the patient): Female Sexual Orientation (if Verbalized by the Patient): Bisexual Spiritual care concerns: No Anes - Eval Final PreProcedure Day of Procedure 11/24/24 12:45 Patient weight: morbidly obese Heart: regular rate and rhythm Lungs: clear to auscultation Airway: Mallampati scale class II Neurological: alert and oriented Last oral intake: >/= 8 hours ASA classification: III Emergent: no Anesthetic plan: proceed Anesthesia type and monitoring: general ETT and standard monitoring Results Review: All pre-operative results and documents have been reviewed as part of the pre- operative evaluation. Informed Consent: The patient's anesthetic plan and its attendant risks and benefits were discussed with the patient/family/POA. Questions were solicited and answers provided to the satisfaction of the patient/family/POA.
[2024-11-24] MEDS: LACTATED RINGERS 1,000 ML 30 ML IV CONT ×2 (12:50→14:17)
--- NOTE | 2024-11-24 12:50 | WPDHPUPDATE1 ---
History and Physical Update Update Date/Time: 11/24/24 12:50 History and Physical has been reviewed, including an updated exam of the patient. There are NO changes in the patient's condition. Risks, benefits, and alternatives have been discussed and questions answered. Patient agrees to proceed with procedure.
[2024-11-24] MEDS: ceFAZolin 3 GM/D5W 100 ML 100 ML IVPB (13:14)
[2024-11-24] MEDS: BUPIVACAINE/EPINEPHRINE 0.5% 30 ML VIAL INFILTRATE (13:41)
--- NOTE | 2024-11-24 13:46 | S_PTH ---
PATIENT: Vasu Damon LOC: [facility] U#:[id number] AGE/SX: 29/F ROOM: RE11/24/[address]: Landon Flores DO : 1995 BED: DIS: 11/24/2024 SPEC #: [id number] RECD: 11/25/24 08:23 STATUS: MANJEET REQ #: [id number] DIVINA: 11/24/24 13:[address]: Landon Flores DEPT: [facility] Surgical RECD BY: Yimi Larios ENTERED: 11/25/24 08:23 SP TYPE: Surgical OTHR DR: oHward Angel MD Tissues: A - Gallbladder Procedures: Hematoxylin and Eosin Stain Gross and Microscopic Level 3
--- NOTE | 2024-11-24 14:05 | W.PM.PROC2 ---
Procedure Note - Detailed Date of Procedure 11/24/24 Pre-op Diagnosis symptomatic cholelithiasis Post-op Diagnosis Same Procedure Performed Laparoscopic cholecystectomy Surgeon Landon Flores, DO Anesthesia General and Local (0.5% bupivacaine) Indications This is a 29-year-old woman who presented for with the intermittent upper abdominal pain for the past 6 months. She had previously gone to the emergency department and a CT was obtained which was normal. She then had a HIDA scan which showed evidence of poor gallbladder ejection fraction at 5%. She has a prior history of known cholelithiasis from a previous ultrasound. She also saw Gastroenterology and underwent EGD and gastric emptying scan. No other significant abnormalities have been noted. Discussions were made with the patient about treatment options and decision was made to proceed with laparoscopic cholecystectomy, possible open. Findings Laparoscopic cholecystectomy was performed. The gallbladder appeared slightly dilated but otherwise appeared normal on the surface. The cystic duct appeared normal in size. There was 1 medium-sized gallstone within the gallbladder. No other intra-abdominal abnormalities were noted. The gallbladder was removed and sent to the lab for pathology. Description of Procedure Procedure as well as risks, benefits, and alternatives were discussed with patient. Written consent was obtained and placed in chart prior to procedure. The patient was brought back to surgical suite. Patient was placed in supine position on operating table. Time-out was done to confirm patient and procedure. Patient was then intubated by the anesthesia department. Abdomen was prepped and draped in sterile fashion using chlorhexidine prep. 0.5% bupivacaine with epinephrine was infiltrated at each site of incision. A 5 millimeter incision was made near the umbilicus, and a 5 millimeter Optiview trocar was advanced through the abdominal layers under direct visualization. Once inside the abdominal cavity, carbon dioxide was insufflated to create a pneumoperitoneum. The camera was inserted and the abdomen was inspected. No immediate abnormalities were identified. The patient was placed in reverse Trendelenburg position and rotated slightly to the left. An 11 millimeter incision was made in the subxiphoid region, and an 11 millimeter trocar was inserted under direct visualization. Two 5 millimeter incisions were made in the right upper quadrant, and two 5 millimeter trocars were inserted under direct visualization. The gallbladder was identified and grasped at the fundus and retracted superiorly. It was then grasped at the infundibulum retracted laterally. Careful dissection around the neck of the gallbladder was performed using blunt dissection with a [place] grasper and hook electrocautery. The cystic duct was identified, and a window was created behind it. The cystic artery was also identified and a window was created behind it. The critical view of safety was identified, visualizing the cystic duct running directly into the neck of the gallbladder, and the cystic artery running directly into the wall of the gallbladder. A 5 millimeter clip director of business applications was then used to place 2 clips proximally and 1 clip distally on both the cystic duct and cystic artery. They were then both transected using endoscopic scissors. Once safely away from the gabby hepatitis, the gallbladder was dissected free from the liver bed using hook electrocautery. Hemostasis was achieved along the way. The gallbladder was removed completely and then removed through the subxiphoid port. The liver bed was then inspected. Hemostasis appeared adequate, and our clips appeared secure. The area was gently irrigated with sterile saline. No other abnormalities were seen. The patient was flattened out in bed, and 1 final inspection was made around the abdominal cavity. The subxiphoid port was removed, and a Armin Yamileth cone was used to approximate the fascia with an 0-Vicryl simple interrupted suture. The remaining ports were then removed under direct visualization, the camera was removed, and the pneumoperitoneum was released. The skin of the incisions was approximated using 4-0 Monocryl subcuticular sutures. Exofin glue was applied on top. The patient was then awakened from anesthesia, extubated, and transferred to recovery. Estimated Blood Loss 5 Pathology Yes (Gallbladder) Complications No immediate complications Condition Stable Disposition Same day [facility] Billing Surgery - Charge Forward: Surgery Billing
[2024-11-24] MEDS: oxyCODONE HCL (*CRX) 5 MG TAB IR PO (15:23)
== END 2024-11-24 16:30 | disposition home or self-care (01) ==
PROVIDERS: PCP Family Medicine; Visit Provider Surgery
PROC: 0FT44ZZ Resection of Gallbladder, Percutaneous Endoscopic Approach (ICD-10-PCS; CPT 47562; principal; 2024-11-24 13:00)
DX: K80.10 Calculus of gallbladder with chronic cholecystitis without obstruction (principal); F12.90 Cannabis use, unspecified, uncomplicated; E66.01 Morbid (severe) obesity due to excess calories; Z68.43 Body mass index [BMI] 50.0-59.9, adult
CPT/HCPCS: 47562; 88304; A9270; J0690; J1100; J1885; J2003; J2250; J2405; J2704; J7120

== ENCOUNTER 2025-03-05 15:24 | Outpatient (CLI) | payer OTHER, SELFPAY ==
[2025-03-05 15:48] LABS: Alanine Aminotransferase 34 U/L (6-35); Albumin Level 4.0 g/dL (3.5-5.1); Alkaline Phosphatase 62 U/L (38-126); Aspartate Amino Transferase 26 U/L (14-36); Bilirubin,Total 0.8 mg/dL (0.2-1.3); Total Protein 7.0 g/dL (6.3-8.2)
== END 2025-03-05 15:25 | disposition home or self-care (01) ==
LOC: ANHLAB 15:25
PROVIDERS: PCP Family Medicine; Visit Provider Surgery
DX: K80.20 Calculus of gallbladder without cholecystitis without obstruction (principal)
CPT/HCPCS: 36415; 80076